=== PATIENT | male | born 1995 | race Caucasian/White ===

== ENCOUNTER 2018-10-09 10:51 | Emergency (ER) | payer OTHER ==
[~2018-10-09] VITALS: Ht 182.9 cm; Wt 95.2 kg
[~2018-10-09 10:51] MED LIST: AMOX500 PO; HYDACE5 PO; MULVIT PO
[2018-10-09] MEDS ORDERED: Zanaflex4 MG PO (11:24)
[2018-10-09] MEDS ORDERED: LORA.5 PO (11:24)
[2018-10-09] MEDS ORDERED: KETO10 PO (11:24)
[2018-10-09] MEDS ORDERED: PRED10 PO (11:34)
[2018-10-09] MEDS ORDERED: HYDR1TAB94 PO (11:34)
== END 2018-10-09 11:58 | disposition home or self-care (01) ==
LOC: ER 10:51
DX: G89.29 Other chronic pain (principal); M54.5 Low back pain; Z79.899 Other long term (current) drug therapy; Z79.891 Long term (current) use of opiate analgesic; G43.909 Migraine, unspecified, not intractable, without status migrainosus
CPT/HCPCS: 96372; 99282-25; A9270-GY; J1885

== ENCOUNTER 2019-05-14 21:28 | Emergency (ER) | payer OTHER ==
[~2019-05-14] VITALS: Ht 182.9 cm; Wt 87.5 kg
[~2019-05-14 21:28] MED LIST changes: +HYDR1TAB94 PO; +KETO10 PO; +LORA.5 PO; +PRED10 PO; +Zanaflex4 MG PO
== END 2019-05-14 22:50 | disposition home or self-care (01) ==
LOC: ER 21:28
DX: R00.2 Palpitations (principal); F41.9 Anxiety disorder, unspecified
CPT/HCPCS: 93005; 93010; 99283-25

== ENCOUNTER 2020-09-08 19:07 | Emergency (ER) | payer OTHER ==
[~2020-09-08] VITALS: Ht 182.9 cm; Wt 95.2 kg
[~2020-09-08 19:07] MED LIST changes: +CYCL10 PO; +IBUP600 PO; +Prednisone20 MG PO
[2020-09-08] MEDS ORDERED: METPRE4DP PO (20:14)
[2020-09-08] MEDS ORDERED: CYCL10 PO (20:56)
== END 2020-09-08 21:10 | disposition home or self-care (01) ==
LOC: ER 19:07
DX: M51.26 Other intervertebral disc displacement, lumbar region (principal); Z79.899 Other long term (current) drug therapy
CPT/HCPCS: 96372; 99283; A9270; J1885; J2920

== ENCOUNTER → 2021-12-13 | Outpatient (CLI) | payer OTHER ==
[~2021-12-13] MED LIST changes: +METPRE4DP PO
== END | disposition home or self-care (01) ==
LOC: LAB SHORT 16:30 → LAB 16:30
DX: J02.9 Acute pharyngitis, unspecified (principal)
CPT/HCPCS: 87081